=== PATIENT | male | born 1965 | race Caucasian/White ===

== ENCOUNTER → 2016-05-24 | Outpatient (REF) | payer BC, OTHER ==
[~2016-05-24] MED LIST: ASPI1TAB PO; ATOR1TAB19 PO
== END ==
LOC: M LAB REF 16:34
PROVIDERS: ATTEND Internal Medicine Medical Oncology
DX: C91.10 Chronic lymphocytic leukemia of B-cell type not having achieved remission (principal)

== ENCOUNTER → 2017-01-06 | Outpatient (CLI) | payer BC, OTHER ==
--- NOTE | 2017-01-06 11:50 | REP ---
Limited pelvic, bladder sonography: History: BPH. Prostate volume. Findings: Urine-filled bladder chris are smooth. Pre void bladder volume is calculated at 287 mL. Prostate gland demonstrates dimensions of 3.7 x 4.3 x 5.0 cm for a calculated glandular volume of 37.4 mL. No other abnormality. Signed by Benjy Estes MD 01/06/2017 03:51 P
== END ==
LOC: M SMT 10:35
PROVIDERS: ATTEND Urology
DX: N40.0 Benign prostatic hyperplasia without lower urinary tract symptoms (principal)

== ENCOUNTER → 2017-04-10 | Outpatient (REF) | payer BC, OTHER | LOC: M LAB REF 13:43 | DX: C91.90 Lymphoid leukemia, unspecified not having achieved remission (principal) | CPT/HCPCS: 88300 ==

== ENCOUNTER → 2017-04-25 | Outpatient (CLI) | payer BC, OTHER ==
[~2017-04-25] MED LIST changes: -ASPI1TAB PO; -ATOR1TAB19 PO; +GASTROGRAFIN SOLUTION 30ML (Q9963) As Ordered; +ISOVUE-370 76% 100ML VIAL (Q9967) As Ordered
== END ==
LOC: M RAD 11:28
DX: R61 Generalized hyperhidrosis (principal); Z85.6 Personal history of leukemia

== ENCOUNTER → 2017-11-07 | Outpatient (REF) | payer OTHER ==
[2017-11-07 14:00] LABS: IMMUNOGLOBULIN A 75.9 MG/DL (70-400); IMMUNOGLOBULIN G 704 MG/DL (681-1648); IMMUNOGLOBULIN M 27.3 MG/DL (40-230)
== END ==
LOC: M LAB REF 13:20
DX: C91.10 Chronic lymphocytic leukemia of B-cell type not having achieved remission (principal); D72.829 Elevated white blood cell count, unspecified; D72.820 Lymphocytosis (symptomatic)

== ENCOUNTER → 2017-11-14 | Outpatient (REF) | payer OTHER, BC | LOC: M LAB REF 12:49 | DX: C91.10 Chronic lymphocytic leukemia of B-cell type not having achieved remission (principal) ==

== ENCOUNTER → 2018-05-08 | Outpatient (CLI) | payer BC, OTHER ==
[~2018-05-08] MED LIST changes: +ASPI1TAB PO; +ATOR1TAB19 PO; -GASTROGRAFIN SOLUTION 30ML (Q9963) As Ordered; +GASTROGRAFIN SOLUTION 30ML (Q9963) As Ordered ONE; +IMBR1CAP PO; -ISOVUE-370 76% 100ML VIAL (Q9967) As Ordered; +ISOVUE-370 76% 100ML VIAL (Q9967) As Ordered ONE
--- NOTE | 2018-05-09 08:33 | REP ---
Clinical: Chronic lymphocytic leukemia with splenomegaly. Technique: Axial contrast enhanced images from the thoracic inlet to the upper abdomen with coronal and sagittal re-formations using 100 ml Isovue 370 intravenous contrast material. Comparison: 11/30/2017, 04/25/2017. Findings: The bilateral lung torres are well-aerated and clear. No consolidation, significant nodule or mass lesion appreciated. No pleural effusion or pneumothorax. Tracheobronchial tree is patent. No significant axillary, hilar, or mediastinal adenopathy noted. Mediastinum demonstrates normal thoracic aorta, pulmonary vasculature and heart/pericardium. Surrounding musculoskeletal structures are intact. Impression: Normal contrast enhanced chest CT. No mediastinal or acute pleuroparenchymal process. Electronically Signed by Ajay Theodore MD 05/09/2018 08:24 A
--- NOTE | 2018-05-09 08:39 | REP ---
Clinical: Chronic lymphocytic leukemia with splenomegaly. Technique: Axial contrast enhanced images from the lung bases to the pubic symphysis with delayed images of the abdomen as well as coronal and sagittal re-formations using oral (per protocol) and 100 ml Isovue 370 intravenous contrast material. Comparison: 11/30/2017, 04/25/2017. Findings: Moderate splenomegaly is appreciated with the spleen measuring approximately 13.5 x 6.4 x 13.5 cm (SI=1,167). No focal splenic lesion identified. Liver, pancreas, gallbladder, bilateral adrenal glands and kidneys are essentially normal. Few scattered sub centimeter renal cysts noted bilaterally. The enteric system including stomach, small, and large bowel is without obstruction or acute inflammatory process. Pelvis demonstrates normal bladder and age appropriate prostate/seminal vesicles. No ascites. No free air. No intraperitoneal or retroperitoneal adenopathy. No solitary mass lesion. Abdominal aorta and vasculature without aneurysm or dissection. No skeletal structures demonstrate age-related changes without focal osseous abnormality. Impression: 1. Moderate splenomegaly (SI=1,167) without focal splenic lesion identified. 2. No adenopathy, ascites, or focal inflammatory changes. 3. No acute abdominopelvic pathology appreciated. Electronically Signed by Ajay Theodore MD 05/09/2018 08:31 A
== END ==
LOC: M RAD 10:50
PROVIDERS: ATTEND Internal Medicine Medical Oncology
DX: C91.10 Chronic lymphocytic leukemia of B-cell type not having achieved remission (principal); R16.1 Splenomegaly, not elsewhere classified; D69.6 Thrombocytopenia, unspecified
CPT/HCPCS: 71260; 74177; Q9963; Q9967

== ENCOUNTER → 2020-12-12 | Outpatient (CLI) | payer BC, OTHER ==
[~2020-12-12] MED LIST changes: -ASPI1TAB PO; +ASPI81TA26 PO; -GASTROGRAFIN SOLUTION 30ML (Q9963) As Ordered ONE; +IMBR420T PO; -ISOVUE-370 76% 100ML VIAL (Q9967) As Ordered ONE; +THERTAB52 PO
== END ==
LOC: M LABSMTC 09:34
PROVIDERS: ATTEND Anesthesiology
DX: Z01.818 Encounter for other preprocedural examination (principal); Z11.52 Encounter for screening for COVID-19

== ENCOUNTER 2020-12-17 10:19 | Day surgery (SDC) | payer BC, OTHER ==
[~2020-12-17] VITALS: Ht 167.6 cm; Wt 83.1 kg
[~2020-12-17 10:19] MED LIST changes: +NS 1,000 ML IV ONE
[2020-12-17] MEDS ORDERED: LIDOCAINE 2% 100MG/5ML SDV (FOR ANES.) As Ordered ONE (10:33)
[2020-12-17] MEDS ORDERED: propofoL 200 MG/20 ML VIAL As Ordered ONE (10:33)
[2020-12-17 11:55] VITALS: BP 136/86
[2021-04-27] MEDS ORDERED: IMBR1CAP PO (09:28)
== END 2020-12-17 12:00 | disposition home or self-care (01) ==
LOC: M OPP 10:19
PROVIDERS: ATTEND Surgery
DX: Z12.11 Encounter for screening for malignant neoplasm of colon (principal); Z86.010 Personal history of colon polyps; Z80.0 Family history of malignant neoplasm of digestive organs; D17.5 Benign lipomatous neoplasm of intra-abdominal organs; Z79.899 Other long term (current) drug therapy; C95.91 Leukemia, unspecified, in remission; F17.210 Nicotine dependence, cigarettes, uncomplicated

== ENCOUNTER → 2022-02-08 | Outpatient (REF) | payer OTHER ==
[~2022-02-08] MED LIST changes: -NS 1,000 ML IV ONE
[2022-02-08 13:58] LABS: APPEARANCE, URINE MANUAL CLEAR (CLEAR); BILIRUBIN, URINE MANUAL NEGATIVE (NEGATIVE); BLOOD URINE MANUAL POSITIVE (NEGATIVE); COLOR, URINE MANUAL YELLOW (YELLOW); GLUCOSE, URINE (UA) MANUAL NEGATIVE (NEGATIVE); KETONE, URINE MANUAL NEGATIVE (NEGATIVE); LEUKOCYTE ESTERASE, URINE MAN NEGATIVE (NEGATIVE); NITRITE, URINE MANUAL NEGATIVE (NEGATIVE); PROTEIN, URINE MANUAL TRACE mg/dL (NEGATIVE); UROBILINOGEN, URINE MANUAL NORMAL (NORMAL)
[2022-02-08 14:33] LABS: WBC, URINE NONE SEEN /hpf (0-3)
[2022-02-08 14:34] LABS: BACTERIA, URINE NONE SEEN; HYALINE CAST, URINE NONE SEEN /lpf (0-1); SQUAMOUS EPITHELIAL CELL URINE NONE SEEN /hpf (SMALL AMT)
== END ==
LOC: M SFHCADAM 09:47
PROVIDERS: ATTEND Nurse Practitioner Women's Health
DX: Z12.5 Encounter for screening for malignant neoplasm of prostate (principal); R35.0 Frequency of micturition

== ENCOUNTER 2022-02-24 08:25 | Emergency (ER) | payer BC, OTHER ==
[~2022-02-24] VITALS: Ht 167.6 cm; Wt 88.4 kg
[2022-02-24] MEDS ORDERED: VIBE75TA PO (08:35)
[2022-02-24] MEDS ORDERED: POLY2.5S OS (09:27)
[2022-02-24 09:34] VITALS: BP 143/85
[2022-02-24] MEDS ORDERED: POLYTRIM OPTH DROPS 10ML OS SCH ×2 (09:36→12:00)
== END 2022-02-24 09:46 | disposition home or self-care (01) ==
LOC: M ED 08:25
DX: S43.51XA Sprain of right acromioclavicular joint, initial encounter (principal); X50.9XXA Other and unspecified overexertion or strenuous movements or postures, initial encounter; Y92.009 Unspecified place in unspecified non-institutional (private) residence as the place of occurrence of the external cause; H10.32 Unspecified acute conjunctivitis, left eye; F17.290 Nicotine dependence, other tobacco product, uncomplicated; Z79.899 Other long term (current) drug therapy; Z87.828 Personal history of other (healed) physical injury and trauma; Z98.890 Other specified postprocedural states

== ENCOUNTER → 2023-11-16 | Outpatient (REF) | payer BC ==
[~2023-11-16] MED LIST changes: +POLY2.5S OS; +VIBE75TA PO
[2023-11-16 12:38] LABS: APPEARANCE, URINE CLEAR (CLEAR); BACTERIA, URINE AUTO NEGATIVE (NEGATIVE); BILIRUBIN, URINE AUTO NEGATIVE (NEGATIVE); BLOOD, URINE BLOOD 3+ (NEGATIVE); COLOR, URINE YELLOW (YELLOW); GLUCOSE, URINE (UA) AUTO NEGATIVE (NEGATIVE); KETONE, URINE AUTO NEGATIVE (NEGATIVE); LEUKOCYTE ESTERASE, URINE AUTO NEGATIVE (NEGATIVE); MUCUS, URINE SMALL (NEGATIVE); NITRITE, URINE AUTO NEGATIVE (NEGATIVE); PROTEIN, URINE AUTO NEGATIVE (NEGATIVE); RBC, URINE AUTO 24 /HPF (0-3); SPECIFIC GRAVITY URINE AUTO 1.018 (1.002-1.035); SQUAMOUS EPITHELIAL CELL UR AU 0 /HPF (0-6); UROBILINOGEN, URINE AUTO 0.2 mg/dL (0.0-2.0); WBC, URINE AUTO 1 /HPF (0-3)
== END ==
LOC: M LABSMT 10:03
PROVIDERS: ATTEND Urology
DX: Z12.5 Encounter for screening for malignant neoplasm of prostate (principal); R35.0 Frequency of micturition
CPT/HCPCS: 81001; G0103

== ENCOUNTER → 2023-12-29 | Outpatient (CLI) | payer BC ==
[~2023-12-29] MED LIST changes: +ISOVUE-370 76% 100ML VIAL As Ordered ONE
== END ==
LOC: M RAD 09:48
PROVIDERS: ATTEND Urology
DX: R31.29 Other microscopic hematuria (principal); N28.89 Other specified disorders of kidney and ureter
CPT/HCPCS: 74178; Q9967

== ENCOUNTER → 2024-11-25 | Outpatient (REF) | payer BC ==
[~2024-11-25] MED LIST changes: -ISOVUE-370 76% 100ML VIAL As Ordered ONE
== END ==
LOC: M LABSMT 10:27
PROVIDERS: ATTEND Urology
DX: Z12.5 Encounter for screening for malignant neoplasm of prostate (principal)